=== PATIENT | male | born 1960 | race Caucasian/White ===

== ENCOUNTER 2019-12-21 02:30 | Emergency (ER) | payer MEDICAID ==
--- NOTE | 2019-12-21 03:15 | EDM.PDOC ---
ED HPI GENERAL MEDICAL PROBLEM - General Chief Complaint: General Stated Complaint: hyperglycemia Time Seen by Provider: 12/21/19 03:13 Source of Information: Reports: Patient History Limitations: Reports: No Limitations - History of Present Illness INITIAL COMMENTS - FREE TEXT/NARRATIVE: Jose F is a 59 yo male with PMH of uncontrolled T2D diabetes, chronic low back pain, hyperlipidemia, COPD who presents to the ED with c/o elevated blood glucose. He reports he had 6 steroid injections in his back today. Reports he began feeling lightheaded so he checked his blood sugar and it was > 600. Denies any other symptoms. Last Hgb A1c was 10 in September 2019. Normally follows with Dr. Davis in [place]. Onset: Today Duration: Constant Associated Symptoms: Reports: Malaise. Denies: Confusion, Chest Pain, Cough, cough w sputum, Diaphoresis, Fever/Chills, Headaches, Loss of Appetite, Nausea/ Vomiting, Rash, Seizure, Shortness of Breath, Syncope, Weakness - Related Data Allergies Allergy/AdvReac Type Severity Reaction Status Date / Time No Known Allergies Allergy Verified 12/21/19 02:55 Home Meds: Home Meds ARIPiprazole [Abilify] 2 mg PO DAILY 12/21/19 [History] Acetaminophen with Codeine [Tylenol with Codeine #3 Tablet] 1 tab PO ASDIRECTED PRN 12/21/19 [History] Aspirin [Aspirin EC] 81 mg PO ASDIRECTED 12/21/19 [History] Cyclobenzaprine [Flexeril] 1 tab PO ASDIRECTED PRN 12/21/19 [History] Glimepiride 4 mg PO DAILY 12/21/19 [History] Tamsulosin HCl [Flomax] 0.4 mg PO BID 12/21/19 [History] atorvaSTATin [Lipitor] 20 mg PO DAILY 12/21/19 [History] buPROPion [buPROPion XL] 150 mg PO ASDIRECTED 12/21/19 [History] sitaGLIPtin Phos/Metformin HCl [Janumet Xr 100-1,000 mg Tablet] 4 mg PO DAILY [History] Past Medical History Psychiatric History: Reports: Depression Endocrine/Metabolic History: Reports: Diabetes, Type II - Past Surgical History Respiratory Surgical History: Reports: None Social & Family History - Tobacco Use Smoking Status *Q: Former Smoker Used Tobacco, but Quit: Yes Month/Year Tobacco Last Used: 21 - Caffeine Use Caffeine Use: Reports: Coffee, Soda - Recreational Drug Use Recreational Drug Use: No ED ROS GENERAL - Review of Systems Review Of Systems: Comprehensive ROS is negative, except as noted in HPI. ED EXAM, GENERAL - Physical Exam Exam: See Below Exam Limited By: No Limitations General Appearance: Alert, WD/WN, No Apparent Distress, Obese Eye Exam: Bilateral Eye: EOMI, Normal Fundi, Normal Inspection, PERRL Throat/Mouth: Normal Inspection, Normal Lips, Normal Teeth, Normal Gums, Normal Oropharynx, Normal Voice, No Airway Compromise Head: Atraumatic, Normocephalic Neck: Normal Inspection, Supple, Non-Tender, Full Range of Motion Respiratory/Chest: No Respiratory Distress, Lungs Clear, Normal Breath Sounds, No Accessory Muscle Use, Chest Non-Tender Cardiovascular: Normal Peripheral Pulses, No Edema, No Gallop, No JVD, No Murmur , No Rub, Tachycardia GI/Abdominal: Normal Bowel Sounds, Soft, Non-Tender, No Organomegaly, No Distention, No Abnormal Bruit, No Mass Extremities: Normal Inspection, Normal Range of Motion, Non-Tender, Normal Capillary Refill, No Pedal Edema Neurological: Alert, Oriented, CN II-XII Intact, Normal Cognition, Normal Gait, Normal Reflexes, No Motor/Sensory Deficits Psychiatric: Normal Affect, Normal Mood Skin Exam: Warm, Dry, Intact, Normal Color, No Rash Course - Vital Signs Last Recorded V/S: Last Vital Signs Temp 97.3 F 12/21/19 03:33 Pulse 109 H 12/21/19 03:33 Resp 20 12/21/19 03:33 BP 141/85 H 12/21/19 03:33 Pulse Ox 96 12/21/19 03:33 - Orders/Labs/Meds Labs: Laboratory Tests 12/21/19 12/21/19 12/21/19 Range/Units 03:05 03:10 03:10 WBC 9.2 (5.0-10.0) 10^3/uL RBC 4.90 (4.50-6.00) 10^6/uL Hgb 14.6 (14.0-18.0) g/dL Hct 42.7 (40.0-54.0) % MCV 87.1 (82.0-94.0) fL MCH 29.8 (27.0-32.0) pg MCHC 34.2 (33.0-38.0) g/dL RDW Coeff of Benjamin 13.0 (11.0-15.0) % Plt Count 285 (150-400) 10^3/uL Add Manual Diff Yes Neutrophils % (Manual) 93 H (35-85) % Band Neutrophils % 1 (0-5) % Lymphocytes % (Manual) 4 L (21-55) % Monocytes % (Manual) 2 (2-12) % Absolute Neutrophils 8.65 H (1.80-7.00) 10^3/uL Lymphocytes # (Manual) 0.37 L (1.00-4.80) 10^3/uL Monocytes # (Manual) 0.18 (0.00-0.80) 10^3/uL Platelet Estimate Adequate (ADEQUATE) ABG pH (7.35-7.45) ABG pCO2 (35-45) mm/Hg0 ABG pO2 (80-100) mm/Hg ABG HCO3 (22.0-26.0) mm/L ABG O2 Saturation (95-98) % ABG Base Excess (-2.0-3.0) O2 Delivery Device Sodium 130 L (136-145) mEq/L Potassium 5.1 H (3.5-5.0) mEq/L Chloride 94 L (98-106) mEq/L Carbon Dioxide 24 (21-32) mmol/L BUN 19 H (7-18) mg/dL Creatinine 1.4 H (0.7-1.3) mg/dL Est Cr Clr Drug Dosing 54.29 mL/min Estimated GFR (MDRD) 52 L (>=60) mL/min Glucose 617 H* (75-99) mg/dL POC Glucose (75-105) mg/dl Lactic Acid (0.4-2.0) mmol/L Calcium 9.7 (8.4-10.1) mg/dL Magnesium 1.9 (1.8-2.4) mg/dL Total Bilirubin 0.7 (0.0-1.0) mg/dL AST 10 L (15-37) U/L ALT 28 (12-78) U/L Alkaline Phosphatase 143 H (46-116) U/L Creatine Kinase 162 (35-232) U/L Total Protein 7.5 (6.4-8.2) g/dL Albumin 3.8 (3.4-5.0) g/dL Urine Color Yellow (YELLOW) Urine Appearance Clear (CLEAR) Urine pH 6.0 (4.5-8.0) Ur Specific Crowell 1.010 (1.003-1.020) Urine Protein Negative (NEGATIVE) mg/dL Urine Glucose (UA) 500 H (NEGATIVE) mg/dL Urine Ketones Negative (NEGATIVE) mg/dL Urine Occult Blood Negative (NEGATIVE) Urine Nitrite Negative (NEGATIVE) Urine Bilirubin Negative (NEGATIVE) Urine Urobilinogen 0.2 (0.2-1.0) EU/dL Ur Leukocyte Esterase Negative (NEGATIVE) 12/21/19 12/21/19 12/21/19 Range/Units 03:10 03:30 04:39 WBC (5.0-10.0) 10^3/uL RBC (4.50-6.00) 10^6/uL Hgb (14.0-18.0) g/dL Hct (40.0-54.0) % MCV (82.0-94.0) fL MCH (27.0-32.0) pg MCHC (33.0-38.0) g/dL RDW Coeff of Benjamin (11.0-15.0) % Plt Count (150-400) 10^3/uL Add Manual Diff Neutrophils % (Manual) (35-85) % Band Neutrophils % (0-5) % Lymphocytes % (Manual) (21-55) % Monocytes % (Manual) (2-12) % Absolute Neutrophils (1.80-7.00) 10^3/uL Lymphocytes # (Manual) (1.00-4.80) 10^3/uL Monocytes # (Manual) (0.00-0.80) 10^3/uL Platelet Estimate (ADEQUATE) ABG pH 7.39 (7.35-7.45) ABG pCO2 35 (35-45) mm/Hg0 ABG pO2 87 (80-100) mm/Hg ABG HCO3 21.3 L (22.0-26.0) mm/L ABG O2 Saturation 97 (95-98) % ABG Base Excess -4.0 L (-2.0-3.0) O2 Delivery Device Room air Sodium (136-145) mEq/L Potassium (3.5-5.0) mEq/L Chloride (98-106) mEq/L Carbon Dioxide (21-32) mmol/L BUN (7-18) mg/dL Creatinine (0.7-1.3) mg/dL Est Cr Clr Drug Dosing mL/min Estimated GFR (MDRD) (>=60) mL/min Glucose (75-99) mg/dL POC Glucose 457 H* (75-105) mg/dl Lactic Acid 3.6 H (0.4-2.0) mmol/L Calcium (8.4-10.1) mg/dL Magnesium (1.8-2.4) mg/dL Total Bilirubin (0.0-1.0) mg/dL AST (15-37) U/L ALT (12-78) U/L Alkaline Phosphatase (46-116) U/L Creatine Kinase (35-232) U/L Total Protein (6.4-8.2) g/dL Albumin (3.4-5.0) g/dL Urine Color (YELLOW) Urine Appearance (CLEAR) Urine pH (4.5-8.0) Ur Specific Crowell (1.003-1.020) Urine Protein (NEGATIVE) mg/dL Urine Glucose (UA) (NEGATIVE) mg/dL Urine Ketones (NEGATIVE) mg/dL Urine Occult Blood (NEGATIVE) Urine Nitrite (NEGATIVE) Urine Bilirubin (NEGATIVE) Urine Urobilinogen (0.2-1.0) EU/dL Ur Leukocyte Esterase (NEGATIVE) 12/21/19 Range/Units 06:11 WBC (5.0-10.0) 10^3/uL RBC (4.50-6.00) 10^6/uL Hgb (14.0-18.0) g/dL Hct (40.0-54.0) % MCV (82.0-94.0) fL MCH (27.0-32.0) pg MCHC (33.0-38.0) g/dL RDW Coeff of Benjamin (11.0-15.0) % Plt Count (150-400) 10^3/uL Add Manual Diff Neutrophils % (Manual) (35-85) % Band Neutrophils % (0-5) % Lymphocytes % (Manual) (21-55) % Monocytes % (Manual) (2-12) % Absolute Neutrophils (1.80-7.00) 10^3/uL Lymphocytes # (Manual) (1.00-4.80) 10^3/uL Monocytes # (Manual) (0.00-0.80) 10^3/uL Platelet Estimate (ADEQUATE) ABG pH (7.35-7.45) ABG pCO2 (35-45) mm/Hg0 ABG pO2 (80-100) mm/Hg ABG HCO3 (22.0-26.0) mm/L ABG O2 Saturation (95-98) % ABG Base Excess (-2.0-3.0) O2 Delivery Device Sodium (136-145) mEq/L Potassium (3.5-5.0) mEq/L Chloride (98-106) mEq/L Carbon Dioxide (21-32) mmol/L BUN (7-18) mg/dL Creatinine (0.7-1.3) mg/dL Est Cr Clr Drug Dosing mL/min Estimated GFR (MDRD) (>=60) mL/min Glucose (75-99) mg/dL POC Glucose 288 H (75-105) mg/dl Lactic Acid (0.4-2.0) mmol/L Calcium (8.4-10.1) mg/dL Magnesium (1.8-2.4) mg/dL Total Bilirubin (0.0-1.0) mg/dL AST (15-37) U/L ALT (12-78) U/L Alkaline Phosphatase (46-116) U/L Creatine Kinase (35-232) U/L Total Protein (6.4-8.2) g/dL Albumin (3.4-5.0) g/dL Urine Color (YELLOW) Urine Appearance (CLEAR) Urine pH (4.5-8.0) Ur Specific Crowell (1.003-1.020) Urine Protein (NEGATIVE) mg/dL Urine Glucose (UA) (NEGATIVE) mg/dL Urine Ketones (NEGATIVE) mg/dL Urine Occult Blood (NEGATIVE) Urine Nitrite (NEGATIVE) Urine Bilirubin (NEGATIVE) Urine Urobilinogen (0.2-1.0) EU/dL Ur Leukocyte Esterase (NEGATIVE) Meds: Medications Discontinued Medications Generic Name Dose Route Start Last Admin Trade Name Freq PRN Reason Stop Dose Admin Sodium Chloride 1,000 mls @ 500 mls/hr 12/21/19 04:00 12/21/19 04:15 Normal Saline IV 500 mls/hr ASDIRECTED CELIO Administration Insulin Human Lispro 15 unit 12/21/19 03:00 12/21/19 03:21 Humalog SUBCUT 12/21/19 03:01 15 units STAT ONE Administration Insulin Human Lispro 10 unit 12/21/19 04:00 12/21/19 04:08 Humalog SUBCUT 10 unit STAT CELIO Administration Insulin Human Lispro 10 unit 12/21/19 04:45 12/21/19 04:47 Humalog SUBCUT 10 units STAT CELIO Administration - Re-Assessments/Exams Free Text/Narrative Re-Assessment/Exam: 12/21/19 03:56 Consulted via telephone with Payal Shi. Recommends IVF and subcutaneous insulin administration until blood glucose at least < 400. Likely just drug induced hyperglycemia. Agrees patient would be safe for outpt follow up. Will keep patient extended ED for IVF and continued monitoring of blood glucose until it is at an acceptable level. Departure - Departure Time of Disposition: 06:46 Disposition: Home, Self-Care 01 Condition: Fair Clinical Impression: Hyperglycemia, drug-induced Uncontrolled type 2 diabetes mellitus Qualifiers: Glycemic state: with hyperglycemia Qualified Code(s): E11.65 - Type 2 diabetes mellitus with hyperglycemia - Discharge Information *PRESCRIPTION DRUG MONITORING PROGRAM REVIEWED*: Not Applicable *COPY OF PRESCRIPTION DRUG MONITORING REPORT IN PATIENT MARIJA: Not Applicable Instructions: Hyperglycemia, [id number] Referrals: Zoila Davis MD [Primary Care Provider] - Forms: ED Department Discharge Additional Instructions: - Blood sugar will likely run higher than normal the next few days due to steroid injection - Resume home medications as previously prescribed - Follow strict diabetic diet - Follow up with PCP in the next 3-5 days for recheck, sooner if symptoms worsen or persist - Return to ED for emergent needs Sepsis Event Note - Evaluation Sepsis Screening Result: No Definite Risk - Focused Exam Date Exam was Performed: 12/25/19 Time Exam was Performed: 08:29 - Problem List & Annotations (1) Hyperglycemia, drug-induced SNOMED Code(s): 662506961 Code(s): R73.9 - HYPERGLYCEMIA, UNSPECIFIED; T50.905A - ADVERSE EFFECT OF UNSP DRUG/MEDS/BIOL SUBST, INIT Status: Acute (2) Uncontrolled type 2 diabetes mellitus SNOMED Code(s): 217204957, 451429510 Code(s): E11.65 - TYPE 2 DIABETES MELLITUS WITH HYPERGLYCEMIA Status: Chronic Qualifiers: Glycemic state: with hyperglycemia Qualified Code(s): E11.65 - Type 2 diabetes mellitus with hyperglycemia - Assessment/Plan Assessment:: Drug Induced Hyperglycemia Uncontrolled Type 2 DM Plan: Patient presented with c/o elevated blood glucose. C/o dizziness, but otherwise asymptomatic. Labs were drawn, significant for glucose 617, Na 130, and K 5.1. ABGs reveal no acidosis. Labs otherwise stable at baseline. Consulted with Blanca Shi regarding lab findings and recommended treatment. Patient was given 1 L NS and total of 35 units Humalog throughout ED stay. Blood glucose did come down to 288. Patient was asymptomatic. Will be discharged home. Recommend close monitoring of blood glucose and follow up with PCP in the next 3-5 days for recheck. He is advised to return to the ED for any worsening symptoms or ay other emergent needs. Patient verbalized understanding. Patient discharged from facility in satisfactory condition.
[2019-12-21] MEDS: Insulin Lispro 100 Units/ML 3 ML Vial SUBCUT ONE (03:21)
[2019-12-21 03:35] LABS: BICARBONATE,ARTERIAL 21.3 mm/L (22.0-26.0); O2 DELIVERY DEVICE ROOM AIR; O2 SATURATION ARTERIAL 97 % (95-98); PCO2 ARTERIAL 35 mm/Hg0 (35-45); PO2 ARTERIAL 87 mm/Hg (80-100)
[2019-12-21] MEDS: Insulin Lispro 100 Units/ML 3 ML Vial SUBCUT SCH ×2 (04:08→04:47)
[2019-12-21] MEDS: Sodium Chloride 0.9% 1,000 ML IV SCH (04:15)
== END 2019-12-21 06:30 | disposition home or self-care (01) ==
LOC: SUPCPDRO 02:30 → CC.ED 02:30
DX: E09.65 Drug or chemical induced diabetes mellitus with hyperglycemia (principal); F32.9 Major depressive disorder, single episode, unspecified; Z79.82 Long term (current) use of aspirin; Z79.84 Long term (current) use of oral hypoglycemic drugs; Z79.899 Other long term (current) drug therapy; Z87.891 Personal history of nicotine dependence; T38.0X5A Adverse effect of glucocorticoids and synthetic analogues, initial encounter
CPT/HCPCS: 36415; 36600; 80053; 81003; 82550; 82803; 82962; 83605; 83735; 85025; 96360; 96361; 99284; J1815; J7030

== ENCOUNTER 2020-06-25 20:08 | Emergency (ER) | payer MEDICAID ==
--- NOTE | 2020-06-25 20:41 | EDM.PDOC ---
ED HPI GENERAL MEDICAL PROBLEM - General Chief Complaint: General Stated Complaint: SOB Time Seen by Provider: 06/25/20 20:08 Source of Information: Reports: Patient History Limitations: Reports: No Limitations - History of Present Illness INITIAL COMMENTS - FREE TEXT/NARRATIVE: Jose F is a 60 year old male who presents to ER per EMS with complaints of shortness of breath. Had a C1-C7 fusion at [facility] in [place] and was discharged home today. Was to use oxygen at home and has the unit but "couldn't figure out how to use it and started to panic". He states he has required oxygen since surgery, initially 3 liters and now 2 to keep his sats up. He was also running a fever off and on since surgery. Had chest xray where it was noted to have a "hazy appearance" so he had a CT scan to rule out pneumonia and a blood clot and was negative. He had COVID testing x2 in the last week at [facility] and both tests were negative. Unable to find source of fever. Had daily labs but unsure what those results were. He admits to mild nausea. Had a BM prior to discharge after getting an enema today. Had not had one since prior to surgery. Is wearing a c-collar and will be for many weeks. Was ambulating with a walker and doing stairs at the hospital and tolerating quite well. He states was having muscle spasms to the upper back but those have been controlled by Valium. Onset: Gradual Duration: Hour(s): Location: Reports: Neck, Chest, Abdomen Quality: Reports: Ache Severity: Mild Improves with: Reports: Rest Worsens with: Reports: Movement Associated Symptoms: Reports: Fever/Chills, Shortness of Breath, Weakness. Denies: Confusion, Chest Pain, Cough, Loss of Appetite, Nausea/Vomiting Back Pain Score (Numeric/FACES): 8 - Related Data Allergies Allergy/AdvReac Type Severity Reaction Status Date / Time No Known Allergies Allergy Verified 06/25/20 20:26 Home Meds: Home Meds ARIPiprazole [Abilify] 2 mg PO DAILY 12/21/19 [History] Acetaminophen with Codeine [Tylenol with Codeine #3 Tablet] 1 tab PO ASDIRECTED PRN 12/21/19 [History] Aspirin [Aspirin EC] 81 mg PO ASDIRECTED 12/21/19 [History] Cyclobenzaprine [Flexeril] 1 tab PO ASDIRECTED PRN 12/21/19 [History] Glimepiride 4 mg PO DAILY 12/21/19 [History] Tamsulosin HCl [Flomax] 0.4 mg PO BID 12/21/19 [History] atorvaSTATin [Lipitor] 20 mg PO DAILY 12/21/19 [History] buPROPion [buPROPion XL] 150 mg PO ASDIRECTED 12/21/19 [History] sitaGLIPtin Phos/Metformin HCl [Janumet Xr 100-1,000 mg Tablet] 4 mg PO DAILY 12/21/19 [History] Past Medical History Respiratory History: Reports: COPD Musculoskeletal History: Reports: Back Pain, Chronic Psychiatric History: Reports: Depression Endocrine/Metabolic History: Reports: Diabetes, Type II - Past Surgical History Respiratory Surgical History: Reports: None Musculoskeletal Surgical History: Reports: Other (See Below) Other Musculoskeletal Surgeries/Procedures:: spinal fusion Social & Family History - Family History Family Medical History: No Pertinent Family History - Tobacco Use Tobacco Use Status *Q: Never Tobacco User - Caffeine Use Caffeine Use: Reports: None - Recreational Drug Use Recreational Drug Use: No ED ROS GENERAL - Review of Systems Review Of Systems: See Below Constitutional: Reports: Fever, Chills, Malaise, Weakness, Fatigue HEENT: Denies: Ear Discharge, Sinus Problem, Vertigo Respiratory: Reports: Shortness of Breath. Denies: Cough Cardiovascular: Denies: Chest Pain, Edema, Lightheadedness Endocrine: Reports: Fatigue GI/Abdominal: Denies: Abdominal Pain, Nausea, Vomiting : Reports: No Symptoms Musculoskeletal: Reports: Neck Pain Skin: Reports: Bruising (bruising on arms from recent lab draws and IVs) Neurological: Reports: Weakness Psychiatric: Reports: No Symptoms ED EXAM, GENERAL - Physical Exam Exam: See Below Exam Limited By: No Limitations General Appearance: Alert, WD/WN, Mild Distress Ears: Normal External Exam, Normal TMs Nose: Normal Inspection, Normal Mucosa, No Blood Throat/Mouth: Normal Inspection, Normal Oropharynx Head: Normocephalic Neck: Other (C-Collar intact from recent fusion) Respiratory/Chest: No Respiratory Distress, Lungs Clear, Normal Breath Sounds Cardiovascular: Regular Rate, Rhythm GI/Abdominal: Normal Bowel Sounds, Soft, Non-Tender Extremities: Pedal Edema (1+), Other (bruising noted to arms.) Neurological: Alert, Oriented Skin Exam: Warm, Dry Course - Vital Signs Last Recorded V/S: Last Vital Signs Temp 98.7 F 06/25/20 20:11 Pulse 100 06/25/20 20:11 Resp 20 06/25/20 20:11 BP 162/93 H 06/25/20 20:11 Pulse Ox 97 06/25/20 20:11 - Orders/Labs/Meds Orders: Active Orders 24 hr Category Date Time Status Chest 2V [CR] Stat Exams 06/25/20 19:39 Taken Labs: Laboratory Tests 06/25/20 06/25/20 06/25/20 Range/Units 20:10 20:15 20:15 WBC 9.2 (5.0-10.0) 10^3/uL RBC 3.23 L (4.50-6.00) 10^6/uL Hgb 9.4 L (14.0-18.0) g/dL Hct 29.4 L (40.0-54.0) % MCV 91.0 (82.0-94.0) fL MCH 29.1 (27.0-32.0) pg MCHC 32.0 L (33.0-38.0) g/dL RDW Coeff of Benjamin 13.4 (11.0-15.0) % Plt Count 311 (150-400) 10^3/uL Neut % (Auto) 86.2 H (35-85) % Lymph % (Auto) 6.1 L (10-55) % Crook % (Auto) 7.3 (0-16) % Eos % (Auto) 0.2 (0-5) % Baso % (Auto) 0.2 (0-3) % Neut # (Auto) 7.93 H (1.80-7.00) 10^3/uL Lymph # (Auto) 0.56 L (1.00-4.80) 10^3/uL Crook # (Auto) 0.67 (0.00-0.80) 10^3/uL Eos # (Auto) 0.02 (0.00-0.45) 10^3/uL Baso # (Auto) 0.02 10^3/uL PT 11.1 (9.7-12.3) SEC INR 1.10 (0.92-1.18) APTT 24.7 (23.2-32.3) SEC D-Dimer, Quantitative 1.75 H (0.00-0.50) Sodium 134 L (136-145) mEq/L Potassium 4.5 (3.5-5.0) mEq/L Chloride 97 L (98-106) mEq/L Carbon Dioxide 31 (21-32) mmol/L BUN 11 (7-18) mg/dL Creatinine 0.9 (0.7-1.3) mg/dL Est Cr Clr Drug Dosing 83.39 mL/min Estimated GFR (MDRD) > 60 (>=60) mL/min Glucose 144 H D (75-99) mg/dL Lactic Acid (0.4-2.0) mmol/L Calcium 9.0 (8.4-10.1) mg/dL Total Bilirubin 0.6 (0.0-1.0) mg/dL AST 16 (15-37) U/L ALT 9 L (12-78) U/L Alkaline Phosphatase 119 H (46-116) U/L Creatine Kinase 233 H (35-232) U/L Troponin I < 0.017 (0.00-0.06) ng/mL NT-Pro-B Natriuret Pep 237 (0-1000) pg/mL Total Protein 6.7 (6.4-8.2) g/dL Albumin 2.7 L (3.4-5.0) g/dL 06/25/20 Range/Units 20:15 WBC (5.0-10.0) 10^3/uL RBC (4.50-6.00) 10^6/uL Hgb (14.0-18.0) g/dL Hct (40.0-54.0) % MCV (82.0-94.0) fL MCH (27.0-32.0) pg MCHC (33.0-38.0) g/dL RDW Coeff of Benjamin (11.0-15.0) % Plt Count (150-400) 10^3/uL Neut % (Auto) (35-85) % Lymph % (Auto) (10-55) % Crook % (Auto) (0-16) % Eos % (Auto) (0-5) % Baso % (Auto) (0-3) % Neut # (Auto) (1.80-7.00) 10^3/uL Lymph # (Auto) (1.00-4.80) 10^3/uL Crook # (Auto) (0.00-0.80) 10^3/uL Eos # (Auto) (0.00-0.45) 10^3/uL Baso # (Auto) 10^3/uL PT (9.7-12.3) SEC INR (0.92-1.18) APTT (23.2-32.3) SEC D-Dimer, Quantitative (0.00-0.50) Sodium (136-145) mEq/L Potassium (3.5-5.0) mEq/L Chloride (98-106) mEq/L Carbon Dioxide (21-32) mmol/L BUN (7-18) mg/dL Creatinine (0.7-1.3) mg/dL Est Cr Clr Drug Dosing mL/min Estimated GFR (MDRD) (>=60) mL/min Glucose (75-99) mg/dL Lactic Acid 1.0 (0.4-2.0) mmol/L Calcium (8.4-10.1) mg/dL Total Bilirubin (0.0-1.0) mg/dL AST (15-37) U/L ALT (12-78) U/L Alkaline Phosphatase (46-116) U/L Creatine Kinase (35-232) U/L Troponin I (0.00-0.06) ng/mL NT-Pro-B Natriuret Pep (0-1000) pg/mL Total Protein (6.4-8.2) g/dL Albumin (3.4-5.0) g/dL - Re-Assessments/Exams Free Text/Narrative Re-Assessment/Exam: 06/25 Patient's labs are stable. Afebrile. Chest xray unremarkable. Oxygen sats remain 94% or greater with oxygen on at 2 liters. Demonstrated use of inhalers for patient. Given his home dose of pain med and Augmentin. Patient does live alone so did contact EMS to give patient a ride home and ensure is receiving his oxygen properly. Advised patient to contact Dr. Davis tomorrow and consider home health for the patient. Departure - Departure Time of Disposition: 21:29 Disposition: Home, Self-Care 01 Condition: Fair Clinical Impression: Hypoxia - Discharge Information *PRESCRIPTION DRUG MONITORING PROGRAM REVIEWED*: No *COPY OF PRESCRIPTION DRUG MONITORING REPORT IN PATIENT MARIJA: No Instructions: Hypoxia Forms: ED Department Discharge Additional Instructions: 1. Rest 2. push fluids 3. Meds as directed. Ensure using inhalers 4. Oxygen at 2-3 liters as needed 5. Contact Dr. Davis tomorrow to possibly arrange home health Sepsis Event Note (ED) - Evaluation Sepsis Screening Result: No Definite Risk - My Orders Last 24 Hours: My Active Orders 06/25/20 19:39 Chest 2V [CR] Stat - Assessment/Plan Last 24 Hours: My Active Orders 06/25/20 19:39 Chest 2V [CR] Stat
[2020-06-25 20:47] LABS: CHLORIDE,CL 97 mEq/L (98-106); SODIUM,NA 134 mEq/L (136-145)
[2020-06-25 20:57] LABS: PTT,PARTIAL THROMBOPLSTIN TIME 24.7 SEC (23.2-32.3)
== END 2020-06-25 21:45 | disposition home or self-care (01) ==
LOC: CC.ED 20:08
DX: R09.02 Hypoxemia (principal); J44.9 Chronic obstructive pulmonary disease, unspecified; F32.9 Major depressive disorder, single episode, unspecified; E11.9 Type 2 diabetes mellitus without complications; Z79.82 Long term (current) use of aspirin; Z79.84 Long term (current) use of oral hypoglycemic drugs; Z79.899 Other long term (current) drug therapy
CPT/HCPCS: 36415; 71046; 80053; 82550; 83605; 83880; 84484; 85025; 85379; 85610; 85730; 93005; 99285-25

== ENCOUNTER 2020-12-16 12:13 | Inpatient (IN) | payer MEDICAID ==
[2020-12-16] MEDS ORDERED: Glucagon,Human Recombinant 1 MG Vial IM PRN (17:36)
[2020-12-16] MEDS ORDERED: SIMETHICONE 180 MG PO PRN (17:36)
[2020-12-16] MEDS ORDERED: 50% Dextrose in Water 50 ML Syringe IV PRN (17:36)
[2020-12-16] MEDS ORDERED: Non-Formulary Medication 1 Each (Insulin Lispro [Humalog] 100 UNIT/ML Pen) SQ PRN (17:36)
[2020-12-16] MEDS ORDERED: Albuterol 8 GM Inhaler INH PRN (19:05)
[2020-12-16] MEDS ORDERED: Polyvinyl Alcohol 1.4% Ophth Soln 15 ML Bottle EYEBOTH PRN (19:25)
[2020-12-16] MEDS: Tamsulosin 0.4 MG Cap.ER PO SCH (20:39)
[2020-12-16] MEDS: oxyCODONE 5 MG Tab PO PRN (20:40)
[2020-12-16] MEDS: Diazepam 5 MG Tab PO SCH (20:41)
[2020-12-16] MEDS: Insulin Lispro 100 Units/ML 3 ML Vial SUBCUT SCH (20:41)
[2020-12-16] MEDS: atorvaSTATin 20 MG Tab PO SCH (20:41)
[2020-12-16] MEDS: Insulin Glarg,Human.Rec.Analog 100 Unit/ML SUBCUT SCH (20:42)
--- NOTE | 2020-12-17 00:40 | HP ---
CHIEF COMPLAINT: Swing bed admission. HISTORY: The patient is a 60-year-old male who was admitted to our swing bed facility after having a cervical fusion from C2 to T1 after having a decompressive laminectomy. The gentleman is from the [place] area, but is living in [place] now for the last three years. He comes in for rehab. PAST MEDICAL HISTORY: Includes: 1. Type 2 diabetes, requiring insulin. 2. COPD. 3. BPH. 4. Hyperlipidemia. 5. Hypertension. PAST SURGICAL HISTORY: Includes: 1. Recent cervical fusion from C2 to T1. 2. Prior C7 to T6 fusion. ALLERGIES: NONE. CURRENT MEDICATIONS: See chart. SOCIAL HISTORY: The patient is a nonsmoker and nonuser of alcohol. Denies any illicit drug use. REVIEW OF SYSTEMS: As noted. PHYSICAL EXAMINATION: VITAL SIGNS: Temperature of 98, pulse 104, BP 119/79, O2 saturation 95% on room air. GENERAL: The patient is an obese, cooperative white male, in no distress, sitting in the recliner in his room. He has a rigid cervical collar on. He is pleasant, alert, and cooperative. HEENT: Grossly benign. LUNGS: Lung sounds appear clear albeit slightly diminished in both bases. CARDIAC: Tones appear regular. ABDOMEN: Obese, soft, and nontender. EXTREMITIES: No significant peripheral edema is seen. SKIN: No rashes. ASSESSMENT: 1. SWING BED ADMISSION. 2. STATUS POST C2 TO T1 DECOMPRESSION AND FUSION. 3. TYPE 2 DIABETES, REQUIRING INSULIN. 4. HYPERTENSION. 5. CHRONIC OBSTRUCTIVE PULMONARY DISEASE. 6. BENIGN PROSTATIC HYPERTROPHY. PLAN: Orders are written. The patient is on oxycodone p.r.n. and Valium. He has a consultation for PT, OT. We will continue with all prior of his cares. The rest of his order, see chart. KAYLA/RUBY /[id number]
[2020-12-17] MEDS: oxyCODONE 5 MG Tab PO PRN ×6 (01:02→23:40)
[2020-12-17] MEDS: Cyclobenzaprine 10 MG Tab PO PRN (01:02)
[2020-12-17] MEDS: Acetaminophen 325 MG Tab PO PRN ×2 (03:42→14:08)
[2020-12-17] MEDS ORDERED: SPIRIVA RESPIMAT INH SCH (08:00)
[2020-12-17] MEDS ORDERED: Aspirin 81 MG Tab.EC PO SCH (08:00)
[2020-12-17] MEDS: Diazepam 5 MG Tab PO SCH ×3 (08:07→20:10)
[2020-12-17] MEDS: Finasteride 5 MG Tab PO SCH (08:07)
[2020-12-17] MEDS: metFORMIN 500 MG Tab PO SCH ×2 (08:07→17:32)
[2020-12-17] MEDS: Pantoprazole 40 MG Tab.CR PO SCH (08:08)
[2020-12-17] MEDS: buPROPion 150 MG Tab.ER PO SCH (08:08)
[2020-12-17] MEDS: Lisinopril 5 MG Tab PO SCH (08:08)
[2020-12-17] MEDS: Insulin Lispro 100 Units/ML 3 ML Vial SUBCUT SCH ×4 (08:10→20:23)
[2020-12-17] MEDS: ARIPIPRAZOLE 2 MG PO SCH (10:15)
[2020-12-17] MEDS: Tamsulosin 0.4 MG Cap.ER PO SCH (17:28)
[2020-12-17] MEDS: atorvaSTATin 20 MG Tab PO SCH (20:10)
[2020-12-17] MEDS: Insulin Glarg,Human.Rec.Analog 100 Unit/ML SUBCUT SCH (20:17)
[2020-12-18] MEDS: Acetaminophen 325 MG Tab PO PRN (02:18)
[2020-12-18] MEDS: Cyclobenzaprine 10 MG Tab PO PRN ×2 (02:18→12:38)
[2020-12-18] MEDS: oxyCODONE 5 MG Tab PO PRN ×4 (05:13→22:32)
[2020-12-18] MEDS: Pantoprazole 40 MG Tab.CR PO SCH (06:04)
[2020-12-18] MEDS: Finasteride 5 MG Tab PO SCH (07:39)
[2020-12-18] MEDS: metFORMIN 500 MG Tab PO SCH ×2 (07:39→17:43)
[2020-12-18] MEDS: buPROPion 150 MG Tab.ER PO SCH (07:46)
[2020-12-18] MEDS: Diazepam 5 MG Tab PO SCH ×3 (07:46→19:28)
[2020-12-18] MEDS: Lisinopril 5 MG Tab PO SCH (07:46)
[2020-12-18] MEDS: ARIPIPRAZOLE 2 MG PO SCH (08:05)
[2020-12-18] MEDS: Insulin Lispro 100 Units/ML 3 ML Vial SUBCUT SCH ×3 (12:15→20:13)
[2020-12-18] MEDS: atorvaSTATin 20 MG Tab PO SCH (19:28)
[2020-12-18] MEDS: Insulin Glarg,Human.Rec.Analog 100 Unit/ML SUBCUT SCH (19:31)
[2020-12-18] MEDS ORDERED: Tamsulosin 0.4 MG Cap.ER PO SCH (20:00)
[2020-12-18] MEDS: Tamsulosin 0.4 MG Cap.ER PO SCH (20:14)
[2020-12-19] MEDS: Cyclobenzaprine 10 MG Tab PO PRN (01:36)
[2020-12-19] MEDS: oxyCODONE 5 MG Tab PO PRN ×2 (02:47→07:56)
[2020-12-19] MEDS: Pantoprazole 40 MG Tab.CR PO SCH (06:16)
[2020-12-19 07:49] VITALS: BP 102/61; PULSE 68
[2020-12-19] MEDS: Finasteride 5 MG Tab PO SCH (07:57)
[2020-12-19] MEDS: Diazepam 5 MG Tab PO SCH (07:57)
[2020-12-19] MEDS: metFORMIN 500 MG Tab PO SCH (07:57)
[2020-12-19] MEDS: buPROPion 150 MG Tab.ER PO SCH (07:58)
[2020-12-19] MEDS: Insulin Lispro 100 Units/ML 3 ML Vial SUBCUT SCH ×2 (07:58→11:59)
[2020-12-19] MEDS: ARIPIPRAZOLE 2 MG PO SCH (07:58)
[2020-12-19] MEDS: Lisinopril 5 MG Tab PO SCH (07:58)
[2020-12-19] MEDS ORDERED: Aspirin 81 MG Tab.EC PO SCH (08:00)
--- NOTE | 2020-12-20 08:14 | PCM.DCSUM1 ---
Discharge Summary - Hospital Course HPI Initial Comments: Jose F is a 60 yo male who was admitted for swing bed care status post C2-T1 fusion with decompressive laminectomy. Patient underwent surgery on the the 11 of December. Diagnosis: Stroke: No - Discharge Data Discharge Date: 12/19/20 Discharge Disposition: Home, Self-Care 01 Condition: Fair - Referral to Home Health Primary Care Physician: Zoila Davis MD - Patient Summary/Data Consults: Consultations 12/16/20 17:29 PT Evaluation and Treatment [CONS] Routine - Patient Instructions Diet: Usual Diet as Tolerated Activity: No Lifting Over 10 Pounds Notify Provider of: Increased Pain, Swelling and Redness, Drainage, Nausea and/or Vomiting - Discharge Plan *PRESCRIPTION DRUG MONITORING PROGRAM REVIEWED*: No *COPY OF PRESCRIPTION DRUG MONITORING REPORT IN PATIENT MARIJA: No Prescriptions/Med Rec: oxyCODONE 5 - 10 mg PO Q4H PRN #60 tablet PRN Reason: Pain (Moderate 4-6) diazePAM [Valium.] 5 mg PO TID #30 tablet Home Medications: Home Meds ARIPiprazole [Abilify] 2 mg PO DAILY 12/21/19 [History] Aspirin [Aspirin EC] 81 mg PO ASDIRECTED 12/21/19 [History] Cyclobenzaprine [Flexeril] 1 tab PO TID PRN 12/21/19 [History] Tamsulosin HCl [Flomax] 0.4 mg PO DAILY 12/21/19 [History] atorvaSTATin [Lipitor] 20 mg PO DAILY 12/21/19 [History] buPROPion [buPROPion XL] 150 mg PO DAILY 12/21/19 [History] Acetaminophen [Tylenol] 650 mg PO Q4H PRN 12/16/20 [History] Carboxymethylcellulose Sodium [Artificial Tears] 1 - 2 drop EYEBOTH Q4H PRN 12/16/20 [History] Finasteride [Proscar] 5 mg PO DAILY 12/16/20 [History] Insulin Glarg,Human.Rec.Analog [Lantus] 40 unit SQ BEDTIME 12/16/20 [History] Insulin Lispro [Humalog] 2 - 12 unit SQ ASDIRECTED PRN 12/16/20 [History] Omeprazole 20 mg PO DAILY 12/16/20 [History] Simethicone [Anti-Gas] 180 mg PO Q4H PRN 12/16/20 [History] lisinopriL [Lisinopril] 5 mg PO DAILY 12/16/20 [History] metFORMIN HCl [Glucophage] 1,000 mg PO BID 12/16/20 [History] diazePAM [Valium.] 5 mg PO TID #30 tablet 12/19/20 [Rx] oxyCODONE 5 - 10 mg PO Q4H PRN #60 tablet 12/19/20 [Rx] Oxygen Therapy Mode: Room Air - Discharge Summary/Plan Comment DC Time >30 min.: Yes Discharge Summary/Plan Comment: Patient will be discharged home today per patient request. He states he has improved and pain is now half since surgery. Physical therapy has been working with patient and hasn't been complaint with wearing brace per physical therapy. He will remove it when he feels like it. Discussed the importance with Jose F about wearing his brace continuously. Patient declines staying in swing bed status any longer and has a ride coming to get him at 1:30 today. Will resume all home meds and pain medications renewed for patient today. Is to follow up with primary on the 26 of December. - General Info Date of Service: 12/19/20 Admission Dx/Problem (Free Text: Status Post Cervical Fusion Subjective Update: Patient verbalizes he would like to go home today. States he has a cat at home he needs to get home to take care of. States he hasn't been removing his brace and is wearing it all the time. Staff has admitted patient has not been compliant in regards to continuously wearing his brace. He does ambulate on his own and showered on his own as well. He has no complaints. Feels the pain has improved to about half since surgery. States he hasn't had a bowel movement this week but this is normal for him. He admits to being able to pass gas and no abdominal pain. - Review of Systems General: Reports: No Symptoms HEENT: Reports: No Symptoms Pulmonary: Reports: No Symptoms Cardiovascular: Reports: No Symptoms Gastrointestinal: Reports: No Symptoms Musculoskeletal: Reports: Neck Pain, Back Pain Skin: Reports: No Symptoms Neurological: Reports: No Symptoms - Patient Data Vitals - Most Recent: Last Vital Signs Temp 98.0 F 12/19/20 07:49 Pulse 68 12/19/20 07:49 Resp 18 12/19/20 07:49 BP 102/61 12/19/20 07:58 Pulse Ox 95 12/19/20 07:49 Weight - Most Recent: 298 lb 8 oz Lab Results - Last 24 hrs: Laboratory Results - last 24 hr 12/19/20 12/19/20 Range/Units 07:54 11:55 POC Glucose 74 L 90 (75-105) mg/dL Med Orders - Current: Current Medications Discontinued Medications Acetaminophen (Acetaminophen 325 Mg Tab) 650 mg PO Q4H PRN PRN Reason: Pain Last Admin: 12/18/20 02:18 Dose: 650 mg Documented by: Albuterol (Albuterol 8 Gm Inhaler) 0 gm INH Q4H PRN PRN Reason: Shortness of Breath Artificial Tears (Polyvinyl Alcohol 1.4% Ophth Soln 15 Ml Bottle) 1 - 2 ml EYEBOTH Q4H PRN PRN Reason: Dry Eyes Aspirin (Aspirin 81 Mg Tab.Ec) 81 mg PO DAILY [facility] Last Admin: 12/17/20 08:08 Dose: 81 mg Documented by: Aspirin (Aspirin 81 Mg Tab.Ec) 81 mg PO [id number] [facility] Last Admin: 12/19/20 07:58 Dose: 81 mg Documented by: Atorvastatin Calcium (Atorvastatin 20 Mg Tab) 20 mg PO BEDTIME [facility] Last Admin: 12/18/20 19:28 Dose: 20 mg Documented by: Bupropion HCl (Bupropion 150 Mg Tab.Er) 150 mg PO DAILY [facility] Last Admin: 12/19/20 07:58 Dose: 150 mg Documented by: Cyclobenzaprine HCl (Cyclobenzaprine 10 Mg Tab) 10 mg PO TID PRN PRN Reason: Muscle Spasm Last Admin: 12/19/20 01:36 Dose: 10 mg Documented by: Dextrose/Water (50% Dextrose In Water 50 Ml Syringe) 50 ml IV ASDIRECTED PRN PRN Reason: Hypoglycemia Diazepam (Diazepam 5 Mg Tab) 5 mg PO TID [facility] Stop: 12/30/20 14:00 Last Admin: 12/19/20 07:57 Dose: 5 mg Documented by: Finasteride (Finasteride 5 Mg Tab) 5 mg PO DAILY [facility] Last Admin: 12/19/20 07:57 Dose: 5 mg Documented by: Glucagon (Glucagon,Human Recombinant 1 Mg Vial) 1 mg IM ASDIRECTED PRN PRN Reason: Hypoglycemia Insulin Glargine (Insulin Glarg,Human.Rec.Analog 100 Unit/Ml) 40 unit SUBCUT BEDTIME [facility] Last Admin: 12/18/20 19:31 Dose: 40 units Documented by: Insulin Human Lispro (Insulin Lispro 100 Units/Ml 3 Ml Vial) 2 - 12 unit SUBCUT WITHMEALSANDBED [facility]; Protocol Last Admin: 12/19/20 11:59 Dose: Not Given Documented by: Lisinopril (Lisinopril 5 Mg Tab) 5 mg PO DAILY [facility] Last Admin: 12/19/20 07:58 Dose: 5 mg Documented by: Metformin HCl (Metformin 500 Mg Tab) 1,000 mg PO BIDMEALS [facility] Last Admin: 12/19/20 07:57 Dose: 1,000 mg Documented by: Aripiprazole 2 Mg (Tablet Pt Own) 0 mg PO DAILY [facility] Last Admin: 12/19/20 07:58 Dose: 2 mg Documented by: Non-Formulary Medication (Insulin Lispro [Humalog]) 2 - 12 unit SQ ASDIRECTED PRN PRN Reason: Hyperglycemia Simethicone [Anti- Gas] 180 Mg Capsule Pt Own 0 mg PO Q4H PRN PRN Reason: Gas Spiriva Respimat 2. (5mcg/Act Inhaler) 0 puff INH DAILY [facility] Oxycodone HCl (Oxycodone 5 Mg Tab) 5 - 10 mg PO Q4H PRN PRN Reason: Pain Last Admin: 12/19/20 07:56 Dose: 10 mg Documented by: Pantoprazole Sodium (Pantoprazole 40 Mg Tab.Cr) 40 mg PO ACBREAKFAST [facility] Last Admin: 12/19/20 06:16 Dose: 40 mg Documented by: Tamsulosin HCl (Tamsulosin 0.4 Mg Cap.Er) 0.4 mg PO PCDINNER [facility] Last Admin: 12/18/20 20:14 Dose: Not Given Documented by: Tamsulosin HCl (Tamsulosin 0.4 Mg Cap.Er) 0.4 mg PO Q24H [facility] Last Admin: 12/18/20 19:27 Dose: 0.4 mg Documented by: - Exam General: Reports: Alert, Oriented, Cooperative, No Acute Distress Lungs: Reports: Clear to Auscultation, Normal Respiratory Effort Cardiovascular: Reports: Regular Rate, Regular Rhythm GI/Abdominal Exam: Normal Bowel Sounds, Soft, Non-Tender Extremities: Normal Inspection Skin: Reports: Warm, Dry, Intact Wound/Incisions: Reports: Healing Well, Other (gigi in place to posterior neck/back. 2 gigi to left side of scalp removed today. ) Psy/Mental Status: Reports: Alert, Normal Affect
== END 2020-12-19 13:33 | disposition home or self-care (01) | DRG 560 ==
LOC: CC.MS 14:36 → UNDOADMIN 14:36 → CC.MS 17:29
PROVIDERS: ADMIT Family Medicine; ATTEND Family Medicine
DX: Z47.89 Encounter for other orthopedic aftercare (principal); Z68.42 Body mass index [BMI] 45.0-49.9, adult; E11.9 Type 2 diabetes mellitus without complications; J44.9 Chronic obstructive pulmonary disease, unspecified; E66.9 Obesity, unspecified; N40.0 Benign prostatic hyperplasia without lower urinary tract symptoms; E78.5 Hyperlipidemia, unspecified; I10 Essential (primary) hypertension; Z98.1 Arthrodesis status; Z79.82 Long term (current) use of aspirin; Z79.4 Long term (current) use of insulin; Z79.899 Other long term (current) drug therapy
CPT/HCPCS: 82947; 97110-GP; 97161-GP; A9270-GY; J1815-GY

== ENCOUNTER 2020-12-19 14:25 | Emergency (ER) | payer MEDICAID ==
[2020-12-19] MEDS ORDERED: Morphine 10 MG/ML SDV IM ONE (14:41)
--- NOTE | 2020-12-19 14:56 | EDM.PDOC ---
ED HPI GENERAL MEDICAL PROBLEM - General Chief Complaint: General Stated Complaint: Fall Time Seen by Provider: 12/19/20 14:40 Source of Information: Reports: Patient History Limitations: Reports: No Limitations - History of Present Illness INITIAL COMMENTS - FREE TEXT/NARRATIVE: This patient is a 60 year old male that presents to the ER. Patient was admitted to the hospital as a swing bed. He was discharged about 30 minutes prior to his fall. Patient was on his way home from the hospital and just got home. He reports walking in his door, when he tripped over his bag t hat he had all of his clothes in from the hospital. Patient reports landing on his front. He reports hitting the top head/face. Patient reports that he does have neck and upper back pain, but reports it its not any more than his usual. He reports that he does have a headache. Patient reports that he was admitted swing to the hospital following a repeat fusion that was done involving c4- to upper Thora cic. He does not know the exact locations. Patient reports that he was getting around the hospital fine with a walker. Patient reports he wanted to go home due to his cat named Omaira being at home. Patient reports he lives at home alone. Patient during swing bed admit having a c-collar that is attached to a brace around his chest and back. Patient reports he wears that all the time, except when he is laying down flat. Patient reports he fell with it on. Patient has it on in the ER. Patient denies being on blood thinners. BIB RN checked, patient was no t on Lovenox or blood thinners while in swing bed. Patient denies loc, n, v, vision changes, chest pain, shortness of breath, abd pain, urinary/bowel incontinence. Moves extremities without difficulty. Onset: Today Onset Date: 12/19/20 Location: Reports: Back, Lower Extremity, Left, Lower Extremity, Right Front/Back Body Image: 1 - superficial abrasion 2 - superficial abrasion 3 - old ecchymosis. 4 - dressing intact, from YESSICA drain Severity: Mild Improves with: Reports: Immobilization Worsens with: Reports: Movement Context: Reports: Other (Fall) Associated Symptoms: Reports: No Other Symptoms, Headaches. Denies: Confusion, Chest Pain, Cough, cough w sputum, Diaphoresis, Fever/Chills, Loss of Appetite, Malaise, Nausea/Vomiting, Rash, Seizure, Shortness of Breath, Syncope, Weakness upper back Pain Score (Numeric/FACES): 6 - Related Data Allergies Allergy/AdvReac Type Severity Reaction Status Date / Time No Known Allergies Allergy Verified 12/19/20 14:30 Home Meds: Home Meds ARIPiprazole [Abilify] 2 mg PO DAILY 12/21/19 [History] Aspirin [Aspirin EC] 81 mg PO ASDIRECTED 12/21/19 [History] Cyclobenzaprine [Flexeril] 1 tab PO TID PRN 12/21/19 [History] Tamsulosin HCl [Flomax] 0.4 mg PO DAILY 12/21/19 [History] atorvaSTATin [Lipitor] 20 mg PO DAILY 12/21/19 [History] buPROPion [buPROPion XL] 150 mg PO DAILY 12/21/19 [History] Acetaminophen [Tylenol] 650 mg PO Q4H PRN 12/16/20 [History] Carboxymethylcellulose Sodium [Artificial Tears] 1 - 2 drop EYEBOTH Q4H PRN 12/16/20 [History] Finasteride [Proscar] 5 mg PO DAILY 12/16/20 [History] Insulin Glarg,Human.Rec.Analog [Lantus] 40 unit SQ BEDTIME 12/16/20 [History] Insulin Lispro [Humalog] 2 - 12 unit SQ ASDIRECTED PRN 12/16/20 [History] Omeprazole 20 mg PO DAILY 12/16/20 [History] Simethicone [Anti-Gas] 180 mg PO Q4H PRN 12/16/20 [History] lisinopriL [Lisinopril] 5 mg PO DAILY 12/16/20 [History] metFORMIN HCl [Glucophage] 1,000 mg PO BID 12/16/20 [History] diazePAM [Valium.] 5 mg PO TID #30 tablet 12/19/20 [Rx] oxyCODONE 5 - 10 mg PO Q4H PRN #60 tablet 12/19/20 [Rx] Past Medical History Respiratory History: Reports: COPD Musculoskeletal History: Reports: Back Pain, Chronic Psychiatric History: Reports: Depression Endocrine/Metabolic History: Reports: Diabetes, Type II - Past Surgical History HEENT Surgical History: Reports: Tonsillectomy Respiratory Surgical History: Reports: None Musculoskeletal Surgical History: Reports: Other (See Below) Other Musculoskeletal Surgeries/Procedures:: spinal fusion Social & Family History - Family History Family Medical History: No Pertinent Family History - Caffeine Use Caffeine Use: Reports: None ED ROS GENERAL - Review of Systems Review Of Systems: See Below Constitutional: Reports: No Symptoms HEENT: Reports: No Symptoms Respiratory: Reports: No Symptoms Cardiovascular: Reports: No Symptoms Endocrine: Reports: No Symptoms GI/Abdominal: Reports: No Symptoms : Reports: No Symptoms Musculoskeletal: Reports: Neck Pain, Back Pain (upper) Skin: Reports: Bruising (left forearm), Wound (superifical abrasions bilateral knees) Neurological: Reports: Headache. Denies: Confusion, Dizziness, Numbness, Seizure, Syncope, Tingling, Trouble Speaking, Weakness, Change in Speech Psychiatric: Reports: No Symptoms Hematologic/Lymphatic: Reports: No Symptoms Immunologic: Reports: No Symptoms ED EXAM, GENERAL - Physical Exam Exam: See Below Exam Limited By: No Limitations General Appearance: Alert, WD/WN, No Apparent Distress, Obese Eye Exam: Bilateral Eye: EOMI, Normal Inspection, PERRL Ears: Normal External Exam, Normal Canal, Hearing Grossly Normal, Normal TMs Ear Exam: Bilateral Ear: Auricle Normal, Canal Normal, TM normal Nose: Normal Inspection, Normal Mucosa, No Blood Throat/Mouth: Normal Inspection, Normal Lips, Normal Teeth, Normal Gums, Normal Oropharynx, Normal Voice, No Airway Compromise Head: Atraumatic, Normocephalic Neck: Normal Inspection, Supple, Tender Midline (patient reports same as before fall, but reports he is concerned he didnt mess up his surgery.). No: Full R bernardo of Motion (in c-collar chronic) Respiratory/Chest: No Respiratory Distress, Lungs Clear, Normal Breath Sounds, No Accessory Muscle Use, Chest Non-Tender, Other (oxygen saturation is 89% RA while laying flat. Applied 2L NC, now 97%. ) Cardiovascular: Normal Peripheral Pulses, Regular Rate, Rhythm, No Edema, No Gallop, No JVD, No Murmur, No Rub Peripheral Pulses: 2+: Radial (L), Radial (R), Posterior Tibial (L), Posterior Tibial (R) GI/Abdominal: Soft, Non-Tender, No Distention, Pelvis Stable (Male) Exam: Deferred Rectal (Males) Exam: Deferred Back Exam: Full Range of Motion, Paraspinal Tenderness (upper thoracic, patient reports same as before fall), Vertebral Tenderness (upper thoracic patient reports same as before fall). No: Muscle Spasm Extremities: Normal Range of Motion, Non-Tender, No Pedal Edema, Normal Capillary Refill, Other (ROM intact all extremities. Pulses +2, cap refill <2 sec, sensory/motor function intact. neurovascular intact. ) Neurological: Alert, Oriented, Normal Cognition, No Motor/Sensory Deficits Psychiatric: Normal Affect, Normal Mood Skin Exam: Warm, Dry, Ecchymosis (left forearm, old ecchymosis), Wound/Incision (superifical abrasions bilateral anterior knees) Course - Vital Signs Last Recorded V/S: Last Vital Signs Temp 97.8 F 12/19/20 14:26 Pulse 101 H 12/19/20 14:26 Resp 18 12/19/20 14:26 BP 121/68 12/19/20 14:26 Pulse Ox 92 L 12/19/20 14:26 - Orders/Labs/Meds Orders: Active Orders 24 hr Category Date Time Status Oxygen Therapy, ED [RC] ASDIRECTED Care 12/19/20 14:41 Active Vaccines to be Administered [RC] PER UNIT ROUTINE Care 12/19/20 15:07 Active Cervical Spine wo Cont [CT] Stat Exams 12/19/20 14:40 Taken Head wo Cont [CT] Stat Exams 12/19/20 14:40 Taken Thoracic Spine wo Cont [CT] Stat Exams 12/19/20 14:40 Taken Meds: Medications Discontinued Medications Generic Name Dose Route Start Last Admin Trade Name Freq PRN Reason Stop Dose Admin Diphtheria/Tetanus/Acell Pertussis 0.5 ml 12/19/20 15:06 12/19/20 15:16 Diphtheria,Pertussis(Acell),Tetanus Vaccine 0.5 Ml Syringe IM 12/19/20 15:07 0.5 ml .ONCE ONE Administration Morphine Sulfate 4 mg 12/19/20 14:41 12/19/20 15:17 Morphine 10 Mg/Ml Sdv IM 12/19/20 14:42 4 mg ONETIME ONE Administration Ondansetron HCl 4 mg 12/19/20 15:13 12/19/20 15:16 Ondansetron 4 Mg Tab.Dis PO 12/19/20 15:14 4 mg ONETIME ONE Administration - Radiology Interpretation Free Text/Narrative:: Head CT: no acute findings Cervical/Thoracic: stable exam CT Results Date: 12/19/20 CT Results Time: 16:31 - Re-Assessments/Exams Free Text/Narrative Re-Assessment/Exam: 12/19/20 16:32 Patient oxygen saturation is 97% sitting up in bed. 2L NC. He has documented hypoxia. Patient reports feeling better and wants to go home to take care of his omaira. Will discharge home. Departure - Departure Time of Disposition: 16:29 Disposition: Home, Self-Care 01 Condition: Fair Clinical Impression: Abrasion Fall Qualifiers: Encounter type: initial encounter Qualified Code(s): W19.XXXA - Unspecified fall, initial encounter Head injury Qualifiers: Encounter type: initial encounter Qualified Code(s): S09.90XA - Unspecified injury of head, initial encounter - Discharge Information *PRESCRIPTION DRUG MONITORING PROGRAM REVIEWED*: Not Applicable *COPY OF PRESCRIPTION DRUG MONITORING REPORT IN PATIENT MARIJA: Not Applicable Instructions: Head Injury, Adult, [id number], Abrasion, [id number] Referrals: Zoila Davis MD [Primary Care Provider] - Forms: ED Department Discharge Additional Instructions: Follow up with primary care provider Return to the ER for worsening of condition or any emergent concerns Careful walking please Sepsis Event Note (ED) - Evaluation Sepsis Screening Result: No Definite Risk - Focused Exam Vital Signs: Vital Signs Temp Pulse Resp BP Pulse Ox 12/19/20 14:26 97.8 F 101 H 18 121/68 92 L - My Orders Last 24 Hours: My Active Orders 12/19/20 14:40 Cervical Spine wo Cont [CT] Stat Head wo Cont [CT] Stat Thoracic Spine wo Cont [CT] Stat 12/19/20 14:41 Oxygen Therapy, ED [RC] ASDIRECTED 12/19/20 15:07 Vaccines to be Administered [RC] PER UNIT ROUTINE - Assessment/Plan Last 24 Hours: My Active Orders 12/19/20 14:40 Cervical Spine wo Cont [CT] Stat Head wo Cont [CT] Stat Thoracic Spine wo Cont [CT] Stat 12/19/20 14:41 Oxygen Therapy, ED [RC] ASDIRECTED 12/19/20 15:07 Vaccines to be Administered [RC] PER UNIT ROUTINE Plan: PLEASE SEE RN NOTE FOR PFSH
[2020-12-19] MEDS ORDERED: Diphtheria,Pertussis(Acell),Tetanus Vaccine 0.5 ML Syringe IM ONE (15:06)
[2020-12-19] MEDS ORDERED: Ondansetron 4 MG Tab.DIS PO ONE (15:13)
== END 2020-12-19 17:31 | disposition home or self-care (01) ==
LOC: CC.ED 14:25
DX: S50.812A Abrasion of left forearm, initial encounter (principal); S80.212A Abrasion, left knee, initial encounter; S80.211A Abrasion, right knee, initial encounter; S09.90XA Unspecified injury of head, initial encounter; R09.02 Hypoxemia; Z79.4 Long term (current) use of insulin; Z79.899 Other long term (current) drug therapy; Z23 Encounter for immunization; W18.09XA Striking against other object with subsequent fall, initial encounter
CPT/HCPCS: 70450; 72125; 72128; 90471; 90715; 96372; 99284; A9270; J2270

== ENCOUNTER 2021-11-29 00:25 | Emergency (ER) | payer BC, MEDICAID ==
[2021-11-29] MEDS ORDERED: Ondansetron 4 MG Tab.DIS PO ONE (00:50)
[2021-11-29] MEDS ORDERED: Alum Hydrox/Mag Hydrox/Simeth 30 ML, Lidocaine 2% 15 ML PO ONE ×2 (00:59)
[2021-11-29] MEDS ORDERED: Sodium Chloride 0.9% 500 ML IV SCH (01:30)
[2021-11-29] MEDS ORDERED: Take Home: Orphenadrine 100 MG Tab.ER, 4 Tab Pack PO ONE (01:39)
== END 2021-11-29 02:00 | disposition home or self-care (01) ==
LOC: CC.ED 00:25
DX: A08.4 Viral intestinal infection, unspecified (principal); J44.9 Chronic obstructive pulmonary disease, unspecified; E11.9 Type 2 diabetes mellitus without complications; Z79.899 Other long term (current) drug therapy; Z72.0 Tobacco use; Z79.4 Long term (current) use of insulin
CPT/HCPCS: 99283; A9270-GY; J7040

== ENCOUNTER 2022-05-03 10:52 | Emergency (ER) | payer MEDICAID ==
[2022-05-03] MEDS ORDERED: Albuterol/Ipratropium 3.0-0.5 MG/3 ML Neb Soln NEB ONE (11:23)
[2022-05-03 11:57] LABS: CHLORIDE,CL 106 mEq/L (98-106); SODIUM,NA 142 mEq/L (136-145)
[2022-05-03 11:58] LABS: ESTIMATED GFR 85 mL/min (>=60)
== END 2022-05-03 12:38 | disposition home or self-care (01) ==
LOC: CC.ED 10:52
DX: J44.1 Chronic obstructive pulmonary disease with (acute) exacerbation (principal); E11.9 Type 2 diabetes mellitus without complications; F17.210 Nicotine dependence, cigarettes, uncomplicated; Z79.899 Other long term (current) drug therapy; Z79.82 Long term (current) use of aspirin; Z79.4 Long term (current) use of insulin; Z79.84 Long term (current) use of oral hypoglycemic drugs; Z20.822 Contact with and (suspected) exposure to COVID-19
CPT/HCPCS: 36415; 71046; 80053; 85025; 85379; 86140; 87430; 87804; 94640; 99284; 99285; J7620-GY; U0002

== ENCOUNTER 2022-09-01 07:56 | Emergency (ER) | payer MEDICAID ==
[2022-09-01 08:59] LABS: PTT,PARTIAL THROMBOPLSTIN TIME 26.2 SEC (23.2-32.3)
== END 2022-09-01 09:46 | disposition home or self-care (01) ==
LOC: CC.ED 07:56
DX: H53.9 Unspecified visual disturbance (principal); J44.9 Chronic obstructive pulmonary disease, unspecified; E11.9 Type 2 diabetes mellitus without complications; F17.210 Nicotine dependence, cigarettes, uncomplicated; Z79.82 Long term (current) use of aspirin; Z79.899 Other long term (current) drug therapy; Z79.4 Long term (current) use of insulin
CPT/HCPCS: 36415; 70450; 80053; 82947; 85025; 85610; 85730; 99284